=== PATIENT | female | born 1955 | race African-American/Black ===

== ENCOUNTER 2019-04-10 09:57 | Emergency (ER) | payer MEDICARE, OTHER ==
[~2019-04-10] VITALS: Ht 157.5 cm; Wt 77.0 kg
[~2019-04-10 09:57] MED LIST: A20IH1 IH; ASCO500C6 PO; DOCU250C91 PO; FLUT1DIS3 IH; GABA-531 PO; METAMUCIL1 PKT PO; MULT1CAP32 PO; OMEP20TA2 PO; ONDA-104 PO; OXYC5CAP19 PO; PSYL1PAC11 PO; RIFA300 PO; SENN-180 PO; SULF-168 PO; SULF1TAB42 PO; TRAM50TA4 PO
[2019-04-10] MEDS ORDERED: PHEN8TAB15 PO (10:21)
[2019-04-10] MEDS ORDERED: MECL12.585 PO (10:21)
[2019-04-10] MEDS ORDERED: BUME1TAB34 PO (10:21)
[2019-04-10] MEDS ORDERED: POTA25TA7 PO (10:21)
[2019-04-10 11:12] VITALS: BP 132/69
[2019-04-10] MEDS ORDERED: PHEN37.599 PO (11:30)
== END 2019-04-10 11:55 | disposition home or self-care (01) ==
LOC: EMS 09:59
DX: T50.5X1A Poisoning by appetite depressants, accidental (unintentional), initial encounter (principal); K21.9 Gastro-esophageal reflux disease without esophagitis; E03.9 Hypothyroidism, unspecified; G89.29 Other chronic pain; Z90.710 Acquired absence of both cervix and uterus; Z88.6 Allergy status to analgesic agent; Z88.5 Allergy status to narcotic agent; Z88.0 Allergy status to penicillin; Y92.89 Other specified places as the place of occurrence of the external cause

== ENCOUNTER 2019-09-23 05:53 | Emergency (ER) | payer MEDICARE, OTHER ==
[~2019-09-23] VITALS: Ht 167.6 cm; Wt 80.9 kg
[~2019-09-23 05:53] MED LIST changes: -A20IH1 IH; +BUME1TAB34 PO; -DOCU250C91 PO; +MECL-183 PO; +PHEN37.599 PO; +POTA25TA7 PO
[2019-09-23] MEDS ORDERED: NALO25TA PO (06:20)
[2019-09-23] MEDS ORDERED: MORPHINE SULFATE 4 MG/ML SYRINGE IM ONE (06:30)
[2019-09-23] MEDS ORDERED: ONDANSETRON HCL 4 MG/2 ML VIAL IM ONE (06:30)
[2019-09-23] MEDS ORDERED: CYCLOBENZAPRINE HCL 10 MG TABLET PO ONE (06:30)
[2019-09-23 07:28] VITALS: BP 169/89
[2019-09-24] MEDS ORDERED: FOLI0.4T14 PO (10:13)
[2019-09-24] MEDS ORDERED: FERR-89 PO (10:13)
[2019-09-24] MEDS ORDERED: MAGN250T29 PO (10:13)
[2019-09-24] MEDS ORDERED: SERT50TA12 PO (10:13)
[2019-09-24] MEDS ORDERED: OXYC10TA59 PO (10:13)
== END 2019-09-23 08:00 | disposition home or self-care (01) ==
LOC: EMS 05:53
DX: G89.29 Other chronic pain (principal); M25.511 Pain in right shoulder; E03.9 Hypothyroidism, unspecified; J44.9 Chronic obstructive pulmonary disease, unspecified; Z88.0 Allergy status to penicillin; Z88.5 Allergy status to narcotic agent; Z88.6 Allergy status to analgesic agent; Z79.899 Other long term (current) drug therapy
CPT/HCPCS: 96372; 99284; J2270; J2405

== ENCOUNTER 2019-09-24 09:05 | Emergency (ER) | payer MEDICARE, OTHER ==
[~2019-09-24] VITALS: Ht 167.6 cm; Wt 81.8 kg
[~2019-09-24 09:05] MED LIST changes: -MECL-183 PO; -METAMUCIL1 PKT PO; +NALO25TA PO; -PHEN37.599 PO; -PSYL1PAC11 PO; -RIFA300 PO; -SENN-180 PO; -SULF-168 PO; -SULF1TAB42 PO; -TRAM50TA4 PO
[2019-09-24] MEDS ORDERED: OxyCODONE HCL 5 MG IR TABLET PO ONE (09:30)
[2019-09-24] MEDS ORDERED: KETOROLAC TROMETHAMINE 30 MG/ML VIAL IM ONE (09:30)
[2019-09-24] MEDS ORDERED: MAGN250T29 PO (10:13)
[2019-09-24] MEDS ORDERED: OXYC10TA59 PO (10:13)
[2019-09-24] MEDS ORDERED: SERT50TA12 PO (10:13)
[2019-09-24] MEDS ORDERED: FOLI0.4T14 PO (10:13)
[2019-09-24] MEDS ORDERED: FERR-89 PO (10:13)
[2019-09-24 10:47] VITALS: BP 141/69
== END 2019-09-24 11:56 | disposition home or self-care (01) ==
LOC: EMS 09:06
DX: M54.12 Radiculopathy, cervical region (principal); M25.511 Pain in right shoulder; I10 Essential (primary) hypertension; J44.9 Chronic obstructive pulmonary disease, unspecified; Z88.0 Allergy status to penicillin; Z88.6 Allergy status to analgesic agent; Z88.5 Allergy status to narcotic agent; Z79.899 Other long term (current) drug therapy
CPT/HCPCS: 96372; 99283; J1885

== ENCOUNTER 2019-09-26 22:12 | Emergency (ER) | payer MEDICARE, OTHER ==
[~2019-09-26] VITALS: Ht 167.6 cm; Wt 72.7 kg
[~2019-09-26 22:12] MED LIST changes: +FERR-89 PO; -FLUT1DIS3 IH; +FOLI0.4T14 PO; -GABA-531 PO; +MAGN250T29 PO; +OXYC10TA59 PO; -OXYC5CAP19 PO; +SERT50TA12 PO
[2019-09-26] MEDS ORDERED: SODIUM CHLORIDE 0.9% 100 ML ONE (22:30)
[2019-09-26] MEDS ORDERED: IOVERSOL 320 MG/ML 100 ML VIAL ONE (22:30)
[2019-09-26 23:09] LABS: BASOPHILS % (AUTO) 0.8 % (0.0-2.0); EOSINOPHILS % (AUTO) 2.3 % (1.0-6.0); HEMATOCRIT 32.8 % (36-46); HEMOGLOBIN 10.5 g/dL (12.0-16.0); LYMPHOCYTES # (AUTO) 1.6 K/uL (1.0-4.8); LYMPHOCYTES % (AUTO) 17.2 % (22.0-44.0); MEAN CORPUSCULAR HEMOGLOBIN 27.9 pg (26.0-34.0); MEAN CORPUSCULAR VOLUME 87 fL (80-100); MONOCYTES # (AUTO) 1.1 K/uL (0.1-1.0); MONOCYTES % (AUTO) 11.9 % (2.0-9.0); NEUTROPHILS # (AUTO) 6.3 K/uL (1.8-7.7); NEUTROPHILS % (AUTO) 67.8 % (40.0-70.0); PLATELET COUNT (AUTO) 255 K/uL (150-450); RED BLOOD CELL COUNT(AUTO) 3.76 MIL/uL (4.00-5.20)
[2019-09-26 23:27] LABS: ANION GAP 11 mmol/L (8-16); CALCIUM, TOTAL 8.8 mg/dL (8.8-10.5); CARBON DIOXIDE 24 mmol/L (22-29); CHLORIDE 108 mmol/L (98-107); CREATININE 1.08 mg/dL (0.60-1.30); GLOMERULAR FILTR. RATE CALC > 60 mL/min (>60); GLUCOSE,RANDOM 97 mg/dL (70-110); POTASSIUM 3.8 mmol/L (3.5-5.1); SODIUM SERUM 143 mmol/L (136-145); UREA NITROGEN, BLOOD 16 mg/dL (7-18)
[2019-09-26 23:33] LABS: ALANINE AMINOTRANSFERASE 22 U/L (12-78); ALBUMIN 3.7 g/dL (3.4-5.0); ALKALINE PHOSPHATASE 90 U/L (46-116); ASPARTATE AMINOTRANSFERASE 15 U/L (15-37); BILIRUBIN,TOTAL 0.4 mg/dL (0.1-1.0); TOTAL PROTEIN, SERUM 7.5 g/dL (6.4-8.2)
[2019-09-27] MEDS ORDERED: OxyCODONE HCL 5 MG IR TABLET PO ONE (02:00)
[2019-09-27] MEDS ORDERED: DOXYCYCLINE HYCLATE 100 MG CAPSULE PO ONE (02:00)
[2019-09-27 02:25] VITALS: BP 123/79
[2019-09-27] MEDS ORDERED: ONDANSETRON HCL 4 MG TABLET PO ONE (03:15)
== END 2019-09-27 03:56 | disposition home or self-care (01) ==
LOC: EMS 22:17
DX: M25.511 Pain in right shoulder (principal); L03.113 Cellulitis of right upper limb; J44.9 Chronic obstructive pulmonary disease, unspecified; G89.29 Other chronic pain; Z90.710 Acquired absence of both cervix and uterus; Z88.0 Allergy status to penicillin; Z88.6 Allergy status to analgesic agent; Z88.5 Allergy status to narcotic agent
CPT/HCPCS: 36415; 70491; 80053; 85025; 99285; J7050; Q0162; Q9967

== ENCOUNTER 2019-10-11 10:43 | Inpatient (IN) | payer MEDICARE, OTHER ==
[~2019-10-11] VITALS: Ht 162.6 cm; Wt 84.3 kg
[2019-10-11] MEDS ORDERED: SODIUM CHLORIDE 0.9% 1,000 ML IV ONE (11:00)
[2019-10-11] MEDS ORDERED: MORPHINE SULFATE 2 MG/ML SYRINGE IVP ONE ×2 (11:00→19:30)
[2019-10-11 11:26] LABS: BASOPHILS % (AUTO) 1.2 % (0.0-2.0); EOSINOPHILS % (AUTO) 2.6 % (1.0-6.0); HEMATOCRIT 31.9 % (36-46); HEMOGLOBIN 10.6 g/dL (12.0-16.0); LYMPHOCYTES # (AUTO) 1.1 K/uL (1.0-4.8); LYMPHOCYTES % (AUTO) 19.2 % (22.0-44.0); MEAN CORPUSCULAR HEMOGLOBIN 29.1 pg (26.0-34.0); MEAN CORPUSCULAR HGB CONC 33.2 G/dL (31.0-37.0); MEAN CORPUSCULAR VOLUME 88 fL (80-100); MONOCYTES # (AUTO) 0.4 K/uL (0.1-1.0); MONOCYTES % (AUTO) 7.7 % (2.0-9.0); NEUTROPHILS # (AUTO) 3.8 K/uL (1.8-7.7); NEUTROPHILS % (AUTO) 69.3 % (40.0-70.0); PLATELET COUNT (AUTO) 232 K/uL (150-450); RED BLOOD CELL COUNT(AUTO) 3.63 MIL/uL (4.00-5.20); RED CELL DISTRIBUTION WIDTH 16.8 % (11.5-14.5)
[2019-10-11 11:49] LABS: LACTIC ACID 0.8 mmol/L (0.4-2.0)
[2019-10-11 11:53] LABS: CALCIUM, TOTAL 9.1 mg/dL (8.8-10.5); CREATININE 1.17 mg/dL (0.60-1.30); POTASSIUM 4.5 mmol/L (3.5-5.1)
[2019-10-11 11:58] LABS: ALBUMIN 3.6 g/dL (3.4-5.0); BILIRUBIN,TOTAL 0.3 mg/dL (0.1-1.0); C-REACTIVE PROTEIN QUANT 1.28 mg/dL (0.00-0.30); TOTAL PROTEIN, SERUM 7.9 g/dL (6.4-8.2)
[2019-10-11] MEDS ORDERED: GADOBUTROL 1 MMOL/ML 10 ML VIAL IVP ONE (12:05)
[2019-10-11 12:27] LABS: ERYTHROCYTE SEDIMENTATION RATE 36 MM/HR (0-20)
[2019-10-11] MEDS ORDERED: OXYC10TA92 PO (12:57)
[2019-10-11] MEDS ORDERED: TIZA4TAB5 PO (12:57)
[2019-10-11] MEDS ORDERED: [UNRECOGNIZED DRUG - CODE] PO (12:57)
[2019-10-11] MEDS ORDERED: DOXE10CA2 PO (12:57)
[2019-10-11] MEDS ORDERED: KDUR10 PO (12:59)
[2019-10-11] MEDS ORDERED: CELE100C97 PO (12:59)
[2019-10-11] MEDS ORDERED: ONDANSETRON HCL 4 MG/2 ML VIAL IVP PRN (13:00)
[2019-10-11] MEDS ORDERED: VANCOMYCIN HCL 1 GM/D5% WATER 200 ML IV ONE (13:00)
[2019-10-11] MEDS: IBUPROFEN 600 MG TABLET PO PRN ×2 (13:59→20:09)
[2019-10-11] MEDS ORDERED: SODIUM CHLORIDE 0.9% 500 ML IV ONE (14:33)
[2019-10-11 15:02] VITALS: BP 138/77
[2019-10-11] MEDS ORDERED: LORazepam 2 MG/ML VIAL IVP ONE (16:45)
[2019-10-11] MEDS ORDERED: INFLUENZA VIRUS VACCINE QVS 2019-20 (3YR+)/PF 60 MCG/0.5 ML SYRINGE IM ONE (18:00)
[2019-10-11] MEDS ORDERED: PNEUMOCOCCAL VACCINE POLYVALENT 0.5 ML VIAL [PPSV23] IM ONE (18:00)
[2019-10-11] MEDS ORDERED: BISACODYL 10 MG RECTAL RECTAL SUPPOSITORY PR PRN (21:00)
[2019-10-11] MEDS ORDERED: ZOLPIDEM TARTRATE 5 MG TABLET PO PRN (21:00)
[2019-10-11] MEDS ORDERED: CELECOXIB 100 MG CAPSULE PO PRN (21:00)
[2019-10-11] MEDS ORDERED: ALBUTEROL SULFATE 2.5 MG/0.5 ML NEB SOLUTION NEB PRN (21:00)
[2019-10-11] MEDS ORDERED: IPRATROPIUM BROMIDE 0.5 MG/2.5 ML NEB SOLUTION NEB PRN (21:00)
[2019-10-11] MEDS ORDERED: MAGNESIUM HYDROXIDE SUSPENSION 30 ML UDCUP PO PRN (21:00)
[2019-10-11] MEDS ORDERED: TiZANidine HCL 4 MG TABLET PO PRN (21:00)
[2019-10-11 22:00] VITALS: BP 143/80
[2019-10-11] MEDS: SERTRALINE HCL 50 MG TABLET PO SCH (22:29)
[2019-10-11] MEDS: DOCUSATE SODIUM 100 MG CAPSULE PO SCH (22:30)
[2019-10-11] MEDS: HEPARIN SODIUM,PORCINE 5,000 UNITS/ML VIAL SQ SCH (23:21)
[2019-10-12 04:30] VITALS: BP 152/73
[2019-10-12] MEDS: MORPHINE SULFATE 2 MG/ML SYRINGE IVP PRN ×5 (05:25→23:20)
[2019-10-12] MEDS: ONDANSETRON HCL 4 MG/2 ML VIAL IVP PRN (05:55)
[2019-10-12 08:13] VITALS: BP 137/72
[2019-10-12] MEDS: HEPARIN SODIUM,PORCINE 5,000 UNITS/ML VIAL SQ SCH ×3 (08:15→23:18)
[2019-10-12] MEDS ORDERED: GADOBUTROL 1 MMOL/ML 10 ML VIAL IVP ONE (08:20)
[2019-10-12] MEDS ORDERED: LORazepam 2 MG/ML VIAL IVP ONE (09:30)
[2019-10-12] MEDS: DOCUSATE SODIUM 100 MG CAPSULE PO SCH ×2 (10:02→20:03)
[2019-10-12] MEDS: BUMETANIDE 1 MG TABLET PO SCH (10:02)
[2019-10-12 14:20] VITALS: BP 149/92
[2019-10-12 15:27] VITALS: BP 147/69
[2019-10-12 18:18] LABS: BASOPHILS % (AUTO) 1.9 % (0.0-2.0); EOSINOPHILS % (AUTO) 1.8 % (1.0-6.0); HEMATOCRIT 31.9 % (36-46); HEMOGLOBIN 10.3 g/dL (12.0-16.0); LYMPHOCYTES # (AUTO) 1.3 K/uL (1.0-4.8); LYMPHOCYTES % (AUTO) 20.6 % (22.0-44.0); MEAN CORPUSCULAR HEMOGLOBIN 28.1 pg (26.0-34.0); MEAN CORPUSCULAR HGB CONC 32.3 G/dL (31.0-37.0); MEAN CORPUSCULAR VOLUME 87 fL (80-100); MONOCYTES # (AUTO) 0.5 K/uL (0.1-1.0); MONOCYTES % (AUTO) 7.2 % (2.0-9.0); NEUTROPHILS # (AUTO) 4.3 K/uL (1.8-7.7); NEUTROPHILS % (AUTO) 68.5 % (40.0-70.0); PLATELET COUNT (AUTO) 230 K/uL (150-450); RED BLOOD CELL COUNT(AUTO) 3.67 MIL/uL (4.00-5.20); RED CELL DISTRIBUTION WIDTH 16.3 % (11.5-14.5)
[2019-10-12 18:27] LABS: CALCIUM, TOTAL 8.8 mg/dL (8.8-10.5); CREATININE 1.15 mg/dL (0.60-1.30)
[2019-10-12 18:33] LABS: ALBUMIN 3.1 g/dL (3.4-5.0); BILIRUBIN,TOTAL 0.4 mg/dL (0.1-1.0); TOTAL PROTEIN, SERUM 7.3 g/dL (6.4-8.2)
[2019-10-12 19:30] VITALS: BP 146/71
[2019-10-12] MEDS: SERTRALINE HCL 50 MG TABLET PO SCH (20:03)
[2019-10-12 23:33] VITALS: BP 148/66
[2019-10-13 05:05] VITALS: BP 140/68
[2019-10-13] MEDS: MORPHINE SULFATE 2 MG/ML SYRINGE IVP PRN ×5 (06:04→16:05)
[2019-10-13 07:18] LABS: EOSINOPHILS % (AUTO) 2.1 % (1.0-6.0); HEMATOCRIT 31.3 % (36-46); HEMOGLOBIN 10.2 g/dL (12.0-16.0); LYMPHOCYTES % (AUTO) 20.7 % (22.0-44.0); MEAN CORPUSCULAR HEMOGLOBIN 28.4 pg (26.0-34.0); MEAN CORPUSCULAR HGB CONC 32.7 G/dL (31.0-37.0); MEAN CORPUSCULAR VOLUME 87 fL (80-100); MONOCYTES # (AUTO) 0.4 K/uL (0.1-1.0); MONOCYTES % (AUTO) 8.1 % (2.0-9.0); NEUTROPHILS # (AUTO) 3.4 K/uL (1.8-7.7); NEUTROPHILS % (AUTO) 68.1 % (40.0-70.0); PLATELET COUNT (AUTO) 221 K/uL (150-450); RED CELL DISTRIBUTION WIDTH 16.3 % (11.5-14.5)
[2019-10-13 07:34] LABS: ALANINE AMINOTRANSFERASE 13 U/L (12-78); ALBUMIN 2.9 g/dL (3.4-5.0); ALKALINE PHOSPHATASE 79 U/L (46-116); ANION GAP 7 mmol/L (8-16); ASPARTATE AMINOTRANSFERASE 11 U/L (15-37); BILIRUBIN,TOTAL 0.4 mg/dL (0.1-1.0); C-REACTIVE PROTEIN QUANT 0.77 mg/dL (0.00-0.30); CALCIUM, TOTAL 8.9 mg/dL (8.8-10.5); CARBON DIOXIDE 27 mmol/L (22-29); CHLORIDE 106 mmol/L (98-107); CREATININE 1.02 mg/dL (0.60-1.30); GLOMERULAR FILTR. RATE CALC > 60 mL/min (>60); GLUCOSE,RANDOM 87 mg/dL (70-110); POTASSIUM 3.9 mmol/L (3.5-5.1); SODIUM SERUM 140 mmol/L (136-145); TOTAL PROTEIN, SERUM 6.8 g/dL (6.4-8.2); UREA NITROGEN, BLOOD 16 mg/dL (7-18)
[2019-10-13 08:05] VITALS: BP 139/70
[2019-10-13] MEDS: CeFAZolin 1 GM/DEXTROSE 50 ML IV SCH ×2 (08:51→16:47)
[2019-10-13] MEDS: DOCUSATE SODIUM 100 MG CAPSULE PO SCH (08:51)
[2019-10-13] MEDS: BUMETANIDE 1 MG TABLET PO SCH (08:51)
[2019-10-13] MEDS: HEPARIN SODIUM,PORCINE 5,000 UNITS/ML VIAL SQ SCH ×2 (08:52→16:48)
[2019-10-13 09:21] LABS: ERYTHROCYTE SEDIMENTATION RATE 29 MM/HR (0-20)
[2019-10-13 11:41] VITALS: BP 120/61
[2019-10-13] MEDS ORDERED: DOXY150T5 PO (15:34)
[2019-10-13 16:05] VITALS: BP 122/91
[2019-10-13] MEDS: ONDANSETRON HCL 4 MG/2 ML VIAL IVP PRN (17:40)
== END 2019-10-13 18:05 | disposition home or self-care (01) | DRG 550 ==
LOC: EDUNIT# 10:43 → EMS 10:47 → 6N 14:02
PROVIDERS: ADMIT Hospitalist; ATTEND Hospitalist
PROC: 3E02340 Introduction of Influenza Vaccine into Muscle, Percutaneous Approach (ICD-10-PCS; principal; 2019-10-13)
PROC: 3E0234Z Introduction of Serum, Toxoid and Vaccine into Muscle, Percutaneous Approach (ICD-10-PCS; 2019-10-13)
DX: M00.9 Pyogenic arthritis, unspecified (principal); G89.29 Other chronic pain; Z23 Encounter for immunization; Z88.0 Allergy status to penicillin; Z88.8 Allergy status to other drugs, medicaments and biological substances; J44.9 Chronic obstructive pulmonary disease, unspecified; E03.9 Hypothyroidism, unspecified; M54.9 Dorsalgia, unspecified; Z90.710 Acquired absence of both cervix and uterus; H54.7 Unspecified visual loss
CPT/HCPCS: 73223; 83605; 85651; 86140; 87040; 90686; 90732; A9585; J0690; J1644; J2060; J2270; J2405; J3370; J7030; J7040

== ENCOUNTER 2019-10-21 19:16 | Inpatient (IN) | payer MEDICARE, OTHER ==
[~2019-10-21] VITALS: Ht 165.1 cm; Wt 80.0 kg
[~2019-10-21 19:16] MED LIST changes: +CELE100C97 PO; +DOXE10CA2 PO; +DOXY150T5 PO; -OXYC10TA59 PO; +OXYC10TA92 PO; -POTA25TA7 PO; +TIZA4TAB5 PO; +[UNRECOGNIZED DRUG - CODE] PO; +[UNRECOGNIZED DRUG - CODE] PO
[2019-10-21] MEDS ORDERED: HYDROmorphone 2 MG/ML SYRINGE IVP ONE (21:45)
[2019-10-21] MEDS ORDERED: ONDANSETRON HCL 4 MG/2 ML VIAL IVP ONE (21:45)
[2019-10-21] MEDS: HYDROmorphone 2 MG/ML SYRINGE IM ONE ×3 (22:15→22:39)
[2019-10-21 22:54] LABS: ANION GAP 10 mmol/L (8-16); CALCIUM, TOTAL 9.2 mg/dL (8.8-10.5); CARBON DIOXIDE 27 mmol/L (22-29); CHLORIDE 105 mmol/L (98-107); CREATININE 1.09 mg/dL (0.60-1.30); GLOMERULAR FILTR. RATE CALC > 60 mL/min (>60); GLUCOSE,RANDOM 108 mg/dL (70-110); POTASSIUM 3.4 mmol/L (3.5-5.1); SODIUM SERUM 142 mmol/L (136-145); UREA NITROGEN, BLOOD 20 mg/dL (7-18)
[2019-10-21 23:00] LABS: ALANINE AMINOTRANSFERASE 14 U/L (12-78); ALBUMIN 3.8 g/dL (3.4-5.0); ALKALINE PHOSPHATASE 93 U/L (46-116); ASPARTATE AMINOTRANSFERASE 9 U/L (15-37); BILIRUBIN,TOTAL 0.3 mg/dL (0.1-1.0); C-REACTIVE PROTEIN QUANT 0.67 mg/dL (0.00-0.30); TOTAL PROTEIN, SERUM 8.1 g/dL (6.4-8.2)
[2019-10-21 23:05] LABS: BASOPHILS % (AUTO) 0.9 % (0.0-2.0); EOSINOPHILS % (AUTO) 0.6 % (1.0-6.0); HEMATOCRIT 35.6 % (36-46); HEMOGLOBIN 11.3 g/dL (12.0-16.0); LYMPHOCYTES # (AUTO) 1.1 K/uL (1.0-4.8); LYMPHOCYTES % (AUTO) 14.6 % (22.0-44.0); MEAN CORPUSCULAR HEMOGLOBIN 28.2 pg (26.0-34.0); MEAN CORPUSCULAR HGB CONC 31.6 G/dL (31.0-37.0); MEAN CORPUSCULAR VOLUME 89 fL (80-100); MONOCYTES # (AUTO) 0.5 K/uL (0.1-1.0); MONOCYTES % (AUTO) 6.8 % (2.0-9.0); NEUTROPHILS # (AUTO) 5.8 K/uL (1.8-7.7); NEUTROPHILS % (AUTO) 77.1 % (40.0-70.0); PLATELET COUNT (AUTO) 268 K/uL (150-450); RED CELL DISTRIBUTION WIDTH 16.2 % (11.5-14.5)
[2019-10-21] MEDS ORDERED: ONDANSETRON HCL 4 MG/2 ML VIAL IVP PRN (23:30)
[2019-10-22 00:09] LABS: ERYTHROCYTE SEDIMENTATION RATE 22 MM/HR (0-20)
[2019-10-22 02:03] VITALS: BP 119/55
[2019-10-22 08:05] VITALS: BP 136/61
[2019-10-22] MEDS: MORPHINE SULFATE 2 MG/ML SYRINGE IVP PRN ×3 (09:03→19:43)
[2019-10-22 12:00] VITALS: BP 141/62
[2019-10-22] MEDS ORDERED: ONDANSETRON HCL 4 MG/2 ML VIAL IVP PRN (12:15)
[2019-10-22] MEDS ORDERED: BISACODYL 10 MG RECTAL RECTAL SUPPOSITORY PR PRN (13:15)
[2019-10-22] MEDS ORDERED: ALBUTEROL SULFATE 2.5 MG/0.5 ML NEB SOLUTION NEB PRN (13:15)
[2019-10-22] MEDS ORDERED: [UNRECOGNIZED DRUG - OTHER] PO PRN (13:15)
[2019-10-22] MEDS ORDERED: MAGNESIUM HYDROXIDE SUSPENSION 30 ML UDCUP PO PRN (13:15)
[2019-10-22] MEDS ORDERED: CELECOXIB 100 MG CAPSULE PO PRN (13:15)
[2019-10-22] MEDS ORDERED: IPRATROPIUM BROMIDE 0.5 MG/2.5 ML NEB SOLUTION NEB PRN (13:15)
[2019-10-22] MEDS: HEPARIN SODIUM,PORCINE 5,000 UNITS/ML VIAL SQ SCH (15:05)
[2019-10-22] MEDS: ASCORBIC ACID 500 MG TABLET PO SCH (15:07)
[2019-10-22] MEDS: MULTIVITAMINS, THERAPEUTIC TABLET PO SCH (15:07)
[2019-10-22] MEDS: ONDANSETRON HCL 4 MG/2 ML VIAL IVP PRN (15:08)
[2019-10-22 15:20] VITALS: BP 139/65
[2019-10-22 15:32] LABS: BASOPHILS % (AUTO) 1.1 % (0.0-2.0); HEMATOCRIT 33.2 % (36-46); HEMOGLOBIN 10.7 g/dL (12.0-16.0); LYMPHOCYTES # (AUTO) 1.4 K/uL (1.0-4.8); LYMPHOCYTES % (AUTO) 27.3 % (22.0-44.0); MEAN CORPUSCULAR HEMOGLOBIN 28.5 pg (26.0-34.0); MEAN CORPUSCULAR HGB CONC 32.3 G/dL (31.0-37.0); MEAN CORPUSCULAR VOLUME 88 fL (80-100); MONOCYTES # (AUTO) 0.5 K/uL (0.1-1.0); MONOCYTES % (AUTO) 9.6 % (2.0-9.0); PLATELET COUNT (AUTO) 242 K/uL (150-450); RED BLOOD CELL COUNT(AUTO) 3.76 MIL/uL (4.00-5.20); RED CELL DISTRIBUTION WIDTH 15.9 % (11.5-14.5)
[2019-10-22 15:45] LABS: ANION GAP 7 mmol/L (8-16); CALCIUM, TOTAL 9.1 mg/dL (8.8-10.5); CARBON DIOXIDE 29 mmol/L (22-29); CHLORIDE 107 mmol/L (98-107); GLOMERULAR FILTR. RATE CALC > 60 mL/min (>60); GLUCOSE,RANDOM 94 mg/dL (70-110); POTASSIUM 3.8 mmol/L (3.5-5.1); SODIUM SERUM 143 mmol/L (136-145); UREA NITROGEN, BLOOD 15 mg/dL (7-18)
[2019-10-22] MEDS: OMEPRAZOLE 20 MG CAPSULE PO SCH (16:09)
[2019-10-22] MEDS: BUMETANIDE 1 MG TABLET PO SCH (16:10)
[2019-10-22 19:40] VITALS: BP 119/59
[2019-10-22] MEDS: TiZANidine HCL 4 MG TABLET PO PRN (20:28)
[2019-10-22] MEDS: DOCUSATE SODIUM 100 MG CAPSULE PO SCH (20:28)
[2019-10-22] MEDS: ZOLPIDEM TARTRATE 5 MG TABLET PO PRN (22:51)
[2019-10-23] VITALS: BP 124/74
[2019-10-23] MEDS: HEPARIN SODIUM,PORCINE 5,000 UNITS/ML VIAL SQ SCH ×3 (00:10→17:18)
[2019-10-23] MEDS: MORPHINE SULFATE 2 MG/ML SYRINGE IVP PRN ×5 (00:11→20:05)
[2019-10-23 04:30] VITALS: BP 143/70
[2019-10-23] MEDS: ASCORBIC ACID 500 MG TABLET PO SCH (08:31)
[2019-10-23] MEDS: OMEPRAZOLE 20 MG CAPSULE PO SCH (08:31)
[2019-10-23] MEDS: DOCUSATE SODIUM 100 MG CAPSULE PO SCH ×2 (08:32→20:15)
[2019-10-23] MEDS: MULTIVITAMINS, THERAPEUTIC TABLET PO SCH (08:32)
[2019-10-23] MEDS: BUMETANIDE 1 MG TABLET PO SCH (08:32)
[2019-10-23 08:42] VITALS: BP 125/53
[2019-10-23] MEDS: ONDANSETRON HCL 4 MG/2 ML VIAL IVP PRN (10:25)
[2019-10-23] MEDS: TiZANidine HCL 4 MG TABLET PO PRN ×2 (11:49→21:08)
[2019-10-23 12:53] VITALS: BP 110/63
[2019-10-23 15:03] VITALS: BP 115/72
[2019-10-23 20:01] VITALS: BP 119/65
[2019-10-24] VITALS (7 sets, daily range): BP systolic 103–140; BP diastolic 64–87
[2019-10-24] MEDS: HEPARIN SODIUM,PORCINE 5,000 UNITS/ML VIAL SQ SCH ×4 (00:21→22:41)
[2019-10-24] MEDS: MORPHINE SULFATE 2 MG/ML SYRINGE IVP PRN ×4 (04:28→21:34)
[2019-10-24] MEDS: ASCORBIC ACID 500 MG TABLET PO SCH (08:28)
[2019-10-24] MEDS: DOCUSATE SODIUM 100 MG CAPSULE PO SCH ×2 (08:28→21:34)
[2019-10-24] MEDS: BUMETANIDE 1 MG TABLET PO SCH (08:28)
[2019-10-24] MEDS: MULTIVITAMINS, THERAPEUTIC TABLET PO SCH (08:28)
[2019-10-24] MEDS: OMEPRAZOLE 20 MG CAPSULE PO SCH (08:28)
[2019-10-24] MEDS: TiZANidine HCL 4 MG TABLET PO PRN ×3 (08:29→22:39)
[2019-10-24] MEDS: ONDANSETRON HCL 4 MG/2 ML VIAL IVP PRN ×2 (08:30→14:38)
[2019-10-24] MEDS: OxyCODONE HCL 10 MG IR TABLET PO PRN (11:06)
[2019-10-24] MEDS: ZOLPIDEM TARTRATE 5 MG TABLET PO PRN (22:39)
[2019-10-25 04:00] VITALS: BP 122/72
[2019-10-25] MEDS: MORPHINE SULFATE 2 MG/ML SYRINGE IVP PRN ×3 (05:27→14:41)
[2019-10-25] MEDS: DOCUSATE SODIUM 100 MG CAPSULE PO SCH (08:32)
[2019-10-25] MEDS: MULTIVITAMINS, THERAPEUTIC TABLET PO SCH (08:32)
[2019-10-25] MEDS: HEPARIN SODIUM,PORCINE 5,000 UNITS/ML VIAL SQ SCH ×2 (08:33→16:00)
[2019-10-25] MEDS: ASCORBIC ACID 500 MG TABLET PO SCH (08:33)
[2019-10-25] MEDS: BUMETANIDE 1 MG TABLET PO SCH (08:33)
[2019-10-25] MEDS: OMEPRAZOLE 20 MG CAPSULE PO SCH (08:33)
[2019-10-25 08:36] VITALS: BP 107/68
[2019-10-25] MEDS: TiZANidine HCL 4 MG TABLET PO PRN ×2 (10:40→18:08)
[2019-10-25 13:16] VITALS: BP 114/68
[2019-10-25 16:53] VITALS: BP 120/76
[2019-10-25] MEDS: OxyCODONE HCL 10 MG IR TABLET PO PRN (18:08)
== END 2019-10-25 20:00 | DRG 554 ==
LOC: EMS 19:16 → 6N 10-22 01:34
PROVIDERS: ADMIT Hospitalist; ATTEND Hospitalist
DX: M19.011 Primary osteoarthritis, right shoulder (principal); E87.6 Hypokalemia; D64.9 Anemia, unspecified; E03.9 Hypothyroidism, unspecified; Z88.0 Allergy status to penicillin; Z88.8 Allergy status to other drugs, medicaments and biological substances; Z88.5 Allergy status to narcotic agent; J44.9 Chronic obstructive pulmonary disease, unspecified; G89.29 Other chronic pain; Z90.710 Acquired absence of both cervix and uterus; M54.9 Dorsalgia, unspecified
CPT/HCPCS: 83605; 84145; 85651; 86140; 87040; 87081; 97163; 97167; 97530; 97535; J1170; J1644; J2270; J2405

== ENCOUNTER 2020-02-01 23:09 | Emergency (ER) | payer MEDICARE, MEDICAID ==
[~2020-02-01] VITALS: Ht 167.6 cm; Wt 72.7 kg
[~2020-02-01 23:09] MED LIST changes: -FOLI0.4T14 PO; +FOLI0.4T92 PO; +POTA-92 PO; -[UNRECOGNIZED DRUG - CODE] PO
[2020-02-02] MEDS ORDERED: MAGNESIUM SULFATE 2 GM/WATER 50 ML IV ONE
[2020-02-02] MEDS ORDERED: SODIUM CHLORIDE 0.9% 1,000 ML IV ONE
[2020-02-02] MEDS ORDERED: KETOROLAC TROMETHAMINE 30 MG/ML VIAL IVP ONE
[2020-02-02] MEDS ORDERED: MethylPREDNISolone SOD SUCC 125 MG/2 ML VIAL IVP ONE
[2020-02-02] MEDS ORDERED: HYDROmorphone 2 MG/ML SYRINGE IVP ONE (00:15)
[2020-02-02 00:25] LABS: BASOPHILS % (AUTO) 1.1 % (0.0-2.0); EOSINOPHILS % (AUTO) 1.7 % (1.0-6.0); HEMOGLOBIN 9.3 g/dL (12.0-16.0); LYMPHOCYTES # (AUTO) 1.1 K/uL (1.0-4.8); LYMPHOCYTES % (AUTO) 20.5 % (22.0-44.0); MEAN CORPUSCULAR HEMOGLOBIN 26.2 pg (26.0-34.0); MEAN CORPUSCULAR HGB CONC 32.2 G/dL (31.0-37.0); MEAN CORPUSCULAR VOLUME 81 fL (80-100); MONOCYTES # (AUTO) 0.5 K/uL (0.1-1.0); MONOCYTES % (AUTO) 9.5 % (2.0-9.0); NEUTROPHILS # (AUTO) 3.6 K/uL (1.8-7.7); NEUTROPHILS % (AUTO) 67.2 % (40.0-70.0); PLATELET COUNT (AUTO) 238 K/uL (150-450); RED BLOOD CELL COUNT(AUTO) 3.56 MIL/uL (4.00-5.20); RED CELL DISTRIBUTION WIDTH 14.3 % (11.5-14.5)
[2020-02-02 00:30] LABS: ANION GAP 6 mmol/L (8-16); CARBON DIOXIDE 33 mmol/L (22-29); CHLORIDE 100 mmol/L (98-107); CREATININE 1.08 mg/dL (0.60-1.30); GLOMERULAR FILTR. RATE CALC > 60 mL/min (>60); GLUCOSE,RANDOM 95 mg/dL (70-110); POTASSIUM 3.1 mmol/L (3.5-5.1); SODIUM SERUM 139 mmol/L (136-145); UREA NITROGEN, BLOOD 17 mg/dL (7-18)
[2020-02-02 00:35] LABS: ALANINE AMINOTRANSFERASE 14 U/L (12-78); ALBUMIN 3.4 g/dL (3.4-5.0); ALKALINE PHOSPHATASE 100 U/L (46-116); ASPARTATE AMINOTRANSFERASE 13 U/L (15-37); BILIRUBIN,TOTAL 0.3 mg/dL (0.1-1.0)
[2020-02-02] MEDS ORDERED: POTASSIUM CHLORIDE 20 MEQ ER TABLET PO ONE (00:45)
[2020-02-02 04:09] VITALS: BP 137/73
== END 2020-02-02 04:15 | disposition home or self-care (01) ==
LOC: EMS 23:10
DX: S46.911A Strain of unspecified muscle, fascia and tendon at shoulder and upper arm level, right arm, initial encounter (principal); G44.209 Tension-type headache, unspecified, not intractable; M54.2 Cervicalgia; J44.9 Chronic obstructive pulmonary disease, unspecified; G89.29 Other chronic pain; Z90.710 Acquired absence of both cervix and uterus; Z88.6 Allergy status to analgesic agent; Z88.5 Allergy status to narcotic agent; Z88.0 Allergy status to penicillin; Z88.8 Allergy status to other drugs, medicaments and biological substances; Z91.018 Allergy to other foods; X58.XXXA Exposure to other specified factors, initial encounter; Y93.89 Activity, other specified; Y92.89 Other specified places as the place of occurrence of the external cause; Y99.8 Other external cause status
CPT/HCPCS: 36415; 70450; 72125; 80053; 85025; 96365; 96366; 96375; 99285; J1170; J1885; J2930; J3475; J7030

== ENCOUNTER 2020-03-02 17:15 | Emergency (ER) | payer MEDICARE, MEDICAID ==
[~2020-03-02] VITALS: Ht 170.2 cm; Wt 88.6 kg
[2020-03-02] MEDS ORDERED: KETOROLAC TROMETHAMINE 30 MG/ML VIAL IM ONE (20:30)
[2020-03-02] MEDS ORDERED: HYDROCODONE/ACETAMINOPHEN 5-325 MG TABLET PO ONE (20:30)
[2020-03-02 20:55] VITALS: BP 139/64
== END 2020-03-02 21:26 | disposition home or self-care (01) ==
LOC: EMS 17:16
DX: M16.11 Unilateral primary osteoarthritis, right hip (principal); J44.9 Chronic obstructive pulmonary disease, unspecified; Z79.899 Other long term (current) drug therapy
CPT/HCPCS: 96372; 99283; J1885

== ENCOUNTER 2020-03-11 19:40 | Emergency (ER) | payer MEDICARE, MEDICAID ==
[~2020-03-11] VITALS: Ht 165.1 cm; Wt 75.0 kg
[2020-03-11] MEDS ORDERED: OxyCODONE HCL 5 MG IR TABLET PO ONE (20:30)
[2020-03-11 23:18] VITALS: BP 137/71
== END 2020-03-11 23:57 | disposition home or self-care (01) ==
LOC: EMS 19:41
DX: M25.551 Pain in right hip (principal); G89.29 Other chronic pain; J44.9 Chronic obstructive pulmonary disease, unspecified; Z76.0 Encounter for issue of repeat prescription; Z90.710 Acquired absence of both cervix and uterus; Z88.6 Allergy status to analgesic agent; Z88.5 Allergy status to narcotic agent; Z91.018 Allergy to other foods; Z88.0 Allergy status to penicillin; Z88.8 Allergy status to other drugs, medicaments and biological substances

== ENCOUNTER 2020-04-21 14:41 | Emergency (ER) | payer MEDICARE, MEDICAID ==
[~2020-04-21] VITALS: Ht 167.6 cm; Wt 76.4 kg
[~2020-04-21 14:41] MED LIST changes: -NALO25TA PO; +NALO25TA4 PO
[2020-04-21] MEDS ORDERED: CYCLOBENZAPRINE HCL 10 MG TABLET PO ONE (15:30)
[2020-04-21] MEDS ORDERED: HYDROCODONE/ACETAMINOPHEN 5-325 MG TABLET PO ONE (17:45)
[2020-04-21 18:51] VITALS: BP 132/75
== END 2020-04-21 18:59 | disposition home or self-care (01) ==
LOC: EMS 14:41
DX: G89.29 Other chronic pain (principal); R51.9 Headache, unspecified; M25.511 Pain in right shoulder; E03.9 Hypothyroidism, unspecified; J44.9 Chronic obstructive pulmonary disease, unspecified; Z79.899 Other long term (current) drug therapy
CPT/HCPCS: 70450

== ENCOUNTER 2020-05-24 16:50 | Emergency (ER) | payer MEDICARE, MEDICAID ==
[~2020-05-24] VITALS: Ht 167.6 cm; Wt 68.2 kg
[~2020-05-24 16:50] MED LIST changes: +FOLI0.4T6 PO; -FOLI0.4T92 PO
[2020-05-24 17:44] VITALS: BP 126/64
[2020-05-24] MEDS ORDERED: HYDROCODONE/ACETAMINOPHEN 5-325 MG TABLET PO ONE (18:30)
== END 2020-05-24 19:24 | disposition home or self-care (01) ==
LOC: EMS 16:50
DX: S91.312A Laceration without foreign body, left foot, initial encounter (principal); J44.9 Chronic obstructive pulmonary disease, unspecified; Z90.710 Acquired absence of both cervix and uterus; Z88.5 Allergy status to narcotic agent; Z91.018 Allergy to other foods; Z88.0 Allergy status to penicillin; Z88.8 Allergy status to other drugs, medicaments and biological substances; W22.8XXA Striking against or struck by other objects, initial encounter; Y93.89 Activity, other specified; Y92.89 Other specified places as the place of occurrence of the external cause; Y99.8 Other external cause status
CPT/HCPCS: 12001

== ENCOUNTER 2020-07-06 20:06 | Emergency (ER) | payer MEDICARE, MEDICAID ==
[~2020-07-06] VITALS: Ht 170.2 cm; Wt 75.0 kg
[2020-07-06] MEDS ORDERED: HYDROCODONE/ACETAMINOPHEN 5-325 MG TABLET PO ONE (20:45)
[2020-07-06] MEDS ORDERED: HYDROmorphone 2 MG/ML SYRINGE IM ONE (20:45)
[2020-07-06] MEDS ORDERED: ONDANSETRON HCL 4 MG/2 ML VIAL IM ONE (20:45)
[2020-07-06 21:05] LABS: BASOPHILS % (AUTO) 1.1 % (0.0-2.0); EOSINOPHILS % (AUTO) 6.8 % (1.0-6.0); HEMATOCRIT 24.9 % (36-46); HEMOGLOBIN 7.7 g/dL (12.0-16.0); LYMPHOCYTES # (AUTO) 0.9 K/uL (1.0-4.8); LYMPHOCYTES % (AUTO) 27.4 % (22.0-44.0); MEAN CORPUSCULAR HEMOGLOBIN 21.4 pg (26.0-34.0); MEAN CORPUSCULAR HGB CONC 30.9 G/dL (31.0-37.0); MEAN CORPUSCULAR VOLUME 69 fL (80-100); MONOCYTES # (AUTO) 0.4 K/uL (0.1-1.0); MONOCYTES % (AUTO) 12.4 % (2.0-9.0); NEUTROPHILS # (AUTO) 1.7 K/uL (1.8-7.7); NEUTROPHILS % (AUTO) 52.3 % (40.0-70.0); PLATELET COUNT (AUTO) 240 K/uL (150-450)
[2020-07-06 21:18] LABS: CALCIUM, TOTAL 8.3 mg/dL (8.8-10.5); CREATININE 1.34 mg/dL (0.60-1.30)
[2020-07-06 21:23] LABS: ALBUMIN 3.2 g/dL (3.4-5.0); BILIRUBIN,TOTAL 0.3 mg/dL (0.1-1.0); TOTAL PROTEIN, SERUM 8.1 g/dL (6.4-8.2)
[2020-07-06 22:23] VITALS: BP 133/84
== END 2020-07-06 22:24 | disposition home or self-care (01) ==
LOC: EMS 20:06
DX: S29.012A Strain of muscle and tendon of back wall of thorax, initial encounter (principal); D50.9 Iron deficiency anemia, unspecified; M47.9 Spondylosis, unspecified; G89.29 Other chronic pain; J44.9 Chronic obstructive pulmonary disease, unspecified; Z90.710 Acquired absence of both cervix and uterus; Z88.0 Allergy status to penicillin; Z88.6 Allergy status to analgesic agent; Z91.02 Food additives allergy status; Z91.018 Allergy to other foods; X58.XXXA Exposure to other specified factors, initial encounter; Y93.89 Activity, other specified; Y92.89 Other specified places as the place of occurrence of the external cause; Y99.8 Other external cause status
CPT/HCPCS: 36415; 80053; 83540; 83550; 84484; 85025; 93005; 96372; 99284; J1170; J2405; 29240

== ENCOUNTER 2020-08-28 19:53 | Emergency (ER) | payer MEDICARE, MEDICAID ==
[~2020-08-28] VITALS: Ht 167.6 cm; Wt 75.0 kg
[~2020-08-28 19:53] MED LIST changes: +SERT-158 PO; -SERT50TA12 PO
[2020-08-28] MEDS ORDERED: ONDANSETRON HCL 4 MG/2 ML VIAL IVP ONE (21:30)
[2020-08-28] MEDS ORDERED: SODIUM CHLORIDE 0.9% 1,000 ML IV ONE (21:30)
[2020-08-28 21:33] LABS: HEMATOCRIT 26.6 % (36-46); HEMOGLOBIN 8.2 g/dL (12.0-16.0); MEAN CORPUSCULAR HEMOGLOBIN 22.1 pg (26.0-34.0); MEAN CORPUSCULAR HGB CONC 30.9 G/dL (31.0-37.0); MEAN CORPUSCULAR VOLUME 72 fL (80-100); PLATELET COUNT (AUTO) 242 K/uL (150-450); RED BLOOD CELL COUNT(AUTO) 3.72 MIL/uL (4.00-5.20); RED CELL DISTRIBUTION WIDTH 21.8 % (11.5-14.5)
[2020-08-28 21:41] LABS: CARBON DIOXIDE 31 mmol/L (22-29); CHLORIDE 101 mmol/L (98-107); POTASSIUM 3.2 mmol/L (3.5-5.1); SODIUM SERUM 141 mmol/L (136-145)
[2020-08-28 21:42] LABS: ANION GAP 9 mmol/L (8-16); CALCIUM, TOTAL 8.3 mg/dL (8.8-10.5); CREATININE 1.45 mg/dL (0.60-1.30); GLOMERULAR FILTR. RATE CALC 44 mL/min (>60); GLUCOSE,RANDOM 98 mg/dL (70-110); UREA NITROGEN, BLOOD 30 mg/dL (7-18)
[2020-08-28 21:57] LABS: ALANINE AMINOTRANSFERASE 14 U/L (12-78); ALBUMIN 3.3 g/dL (3.4-5.0); ALKALINE PHOSPHATASE 105 U/L (46-116); ASPARTATE AMINOTRANSFERASE 13 U/L (15-37); BILIRUBIN,TOTAL 0.3 mg/dL (0.1-1.0); TOTAL PROTEIN, SERUM 8.1 g/dL (6.4-8.2)
[2020-08-28 22:12] LABS: EOSINOPHILS % (MANUAL) 8 % (1-6); LYMPHOCYTES % (MANUAL) 28 % (22-44); MONOCYTES % (MANUAL) 10 % (2-9); SEGMENTED NEUTROPHILS % 54 % (40-70)
[2020-08-28] MEDS: MORPHINE SULFATE 2 MG/ML SYRINGE IVP ONE ×2 (22:51→22:59)
[2020-08-28] MEDS ORDERED: KETOROLAC TROMETHAMINE 30 MG/ML VIAL IVP ONE (23:00)
[2020-08-29] MEDS ORDERED: SODIUM CHLORIDE 0.9% 1,000 ML IV ONE (00:30)
[2020-08-29 02:02] VITALS: BP 112/62
== END 2020-08-29 02:56 | disposition designated cancer center or children's hospital (05) ==
LOC: EMS 19:53
DX: S12.110A Anterior displaced Type II dens fracture, initial encounter for closed fracture (principal); D64.9 Anemia, unspecified; R94.6 Abnormal results of thyroid function studies; J44.9 Chronic obstructive pulmonary disease, unspecified; Z90.710 Acquired absence of both cervix and uterus; Z88.6 Allergy status to analgesic agent; Z88.5 Allergy status to narcotic agent; Z91.018 Allergy to other foods; Z88.0 Allergy status to penicillin; Z88.8 Allergy status to other drugs, medicaments and biological substances; W05.0XXA Fall from non-moving wheelchair, initial encounter; Y93.89 Activity, other specified; Y92.89 Other specified places as the place of occurrence of the external cause; Y99.8 Other external cause status
CPT/HCPCS: 36415; 70450; 72125; 80053; 83880; 84443; 84484; 85025; 93005; 96361 ×2; 96374; 96375; 99291; G0480; J1885; J2270; J2405; J7030 ×2

== ENCOUNTER 2020-10-11 15:47 | Emergency (ER) | payer MEDICARE, MEDICAID ==
[~2020-10-11] VITALS: Ht 167.6 cm; Wt 77.3 kg
[2020-10-11] MEDS ORDERED: METOCLOPRAMIDE HCL 5 MG/ML 2 ML VIAL IVP ONE (18:15)
[2020-10-11] MEDS ORDERED: HYDROCODONE/ACETAMINOPHEN 5-325 MG TABLET PO ONE (18:15)
[2020-10-11] MEDS ORDERED: SODIUM CHLORIDE 0.9% 1,000 ML IV ONE (18:15)
[2020-10-11] MEDS ORDERED: DiphenhydrAMINE HCL 50 MG/ML VIAL IVP ONE (18:15)
[2020-10-11 21:07] VITALS: BP 122/58
== END 2020-10-11 22:10 | disposition home or self-care (01) ==
LOC: EMS 15:50
DX: S12.110A Anterior displaced Type II dens fracture, initial encounter for closed fracture (principal); G89.29 Other chronic pain; M25.511 Pain in right shoulder; J44.9 Chronic obstructive pulmonary disease, unspecified; Z90.710 Acquired absence of both cervix and uterus; Z88.0 Allergy status to penicillin; Z88.8 Allergy status to other drugs, medicaments and biological substances; Z88.6 Allergy status to analgesic agent; Z88.5 Allergy status to narcotic agent; Z91.018 Allergy to other foods; Z91.010 Allergy to peanuts; W19.XXXA Unspecified fall, initial encounter; Y93.89 Activity, other specified; Y92.89 Other specified places as the place of occurrence of the external cause; Y99.8 Other external cause status
CPT/HCPCS: 70450; 72125; 96361; 96374; 96375; 99285; J1200; J2765; J7030

== ENCOUNTER 2021-12-31 01:55 | Emergency (ER) | payer MEDICARE, MEDICAID ==
[~2021-12-31] VITALS: Ht 167.6 cm; Wt 79.5 kg
[~2021-12-31 01:55] MED LIST changes: -FERR-89 PO; +FERR325T27 PO; +TIZA-211 PO; -TIZA4TAB5 PO
[2021-12-31] MEDS ORDERED: SODIUM CHLORIDE 0.9% 1,000 ML IV ONE (02:45)
[2021-12-31] MEDS ORDERED: ONDA-104 PO (02:47)
[2021-12-31] MEDS ORDERED: CARI-493 PO (02:47)
[2021-12-31 03:46] LABS: COVID AG,FIA SOURCE NASAL SWAB
[2021-12-31 03:50] LABS: BASOPHILS % (AUTO) 0.4 % (0.0-2.0); EOSINOPHILS % (AUTO) 0.3 % (1.0-6.0); HEMOGLOBIN 9.5 g/dL (12.0-16.0); LYMPHOCYTES # (AUTO) 0.6 K/uL (1.0-4.8); LYMPHOCYTES % (AUTO) 7.2 % (22.0-44.0); MEAN CORPUSCULAR HGB CONC 31.5 G/dL (31.0-37.0); MEAN CORPUSCULAR VOLUME 73 fL (80-100); MONOCYTES # (AUTO) 0.5 K/uL (0.1-1.0); MONOCYTES % (AUTO) 5.8 % (2.0-9.0); NEUTROPHILS # (AUTO) 6.8 K/uL (1.8-7.7); PLATELET COUNT (AUTO) 242 K/uL (150-450); RED CELL DISTRIBUTION WIDTH 19.2 % (11.5-14.5)
[2021-12-31 04:00] LABS: CALCIUM, TOTAL 8.9 mg/dL (8.8-10.5); CREATININE 1.17 mg/dL (0.60-1.30); POTASSIUM 3.7 mmol/L (3.5-5.1)
[2021-12-31 04:01] LABS: NEUTROPHILS % (AUTO) 86.3 % (40.0-70.0)
[2021-12-31 04:07] LABS: ALBUMIN 3.7 g/dL (3.4-5.0); BILIRUBIN,TOTAL 0.3 mg/dL (0.1-1.0); TOTAL PROTEIN, SERUM 8.4 g/dL (6.4-8.2)
[2021-12-31] MEDS ORDERED: PB/HYOSCY/ATR/SCOP/LIDO/MAALOX 55 ML BOTTLE PO ONE (05:15)
[2021-12-31 06:50] VITALS: BP 138/69
== END 2021-12-31 07:41 | disposition home or self-care (01) ==
LOC: EMS 02:01
DX: A05.9 Bacterial foodborne intoxication, unspecified (principal); M19.90 Unspecified osteoarthritis, unspecified site; J44.9 Chronic obstructive pulmonary disease, unspecified; I10 Essential (primary) hypertension; E03.9 Hypothyroidism, unspecified; H54.7 Unspecified visual loss; Z87.39 Personal history of other diseases of the musculoskeletal system and connective tissue; Z86.69 Personal history of other diseases of the nervous system and sense organs; Z98.890 Other specified postprocedural states; Z88.6 Allergy status to analgesic agent; Z88.5 Allergy status to narcotic agent; Z91.018 Allergy to other foods; Z88.0 Allergy status to penicillin; Z88.8 Allergy status to other drugs, medicaments and biological substances; Z20.822 Contact with and (suspected) exposure to COVID-19
CPT/HCPCS: 99285; 96360; 87426; 80053; 85025; 36415; J7030

== ENCOUNTER 2022-03-20 16:37 | Emergency (ER) | payer MEDICARE, MEDICAID ==
[~2022-03-20] VITALS: Ht 167.6 cm; Wt 84.1 kg
[~2022-03-20 16:37] MED LIST changes: +CARI-493 PO
[2022-03-20 18:35] VITALS: BP 119/72
[2022-03-20] MEDS ORDERED: HYDROCODONE/ACETAMINOPHEN 5-325 MG TABLET PO ONE (20:30)
[2022-03-20] MEDS ORDERED: TIZA-211 PO (20:48)
[2022-03-20] MEDS ORDERED: ONDA4TAB10 PO (21:01)
[2022-03-20] MEDS ORDERED: LACT10SO10 PO (21:01)
[2022-03-20] MEDS ORDERED: DULO-114 PO (21:01)
[2022-03-20] MEDS ORDERED: FOLI-130 PO (21:01)
[2022-03-20] MEDS ORDERED: PANT40TA54 PO (21:01)
[2022-03-20] MEDS ORDERED: METH2.5T6 PO (21:01)
[2022-03-20] MEDS ORDERED: FERR220E7 PO (21:01)
[2022-03-20] MEDS ORDERED: [UNRECOGNIZED DRUG - CODE] PO (21:01)
[2022-03-20] MEDS ORDERED: DOCU-350 PO (21:01)
== END 2022-03-20 21:04 | disposition home or self-care (01) ==
LOC: EMS 16:37
DX: S60.211A Contusion of right wrist, initial encounter (principal); E03.9 Hypothyroidism, unspecified; G89.29 Other chronic pain; J44.9 Chronic obstructive pulmonary disease, unspecified; I10 Essential (primary) hypertension; M19.90 Unspecified osteoarthritis, unspecified site; W22.8XXA Striking against or struck by other objects, initial encounter; Y93.29 Activity, other involving ice and snow; Y92.89 Other specified places as the place of occurrence of the external cause; Y99.8 Other external cause status; Z90.710 Acquired absence of both cervix and uterus; Z88.0 Allergy status to penicillin
CPT/HCPCS: 29515; 99283

== ENCOUNTER 2023-07-16 00:18 | Emergency (ER) | payer MEDICARE, MEDICAID ==
[~2023-07-16] VITALS: Ht 167.6 cm; Wt 81.8 kg
[~2023-07-16 00:18] MED LIST changes: +AMLO-257 PO; -ASCO500C6 PO; -BUME1TAB34 PO; +BUSP5TAB3 PO; -CARI-493 PO; -CELE100C97 PO; -DOXE10CA2 PO; -DOXY150T5 PO; +DULO-114 PO; -FERR325T27 PO; +FOLI-130 PO; -FOLI0.4T6 PO; +HYDR2TAB37 PO; +LINA290C PO; -MAGN250T29 PO; +MECL-302 PO; -MULT1CAP32 PO; -NALO25TA4 PO; -OMEP20TA2 PO; -ONDA-104 PO; -OXYC10TA92 PO; +PANT40TA54 PO; -POTA-92 PO; -SERT-158 PO; +SERT-440 PO; -TIZA-211 PO; +TRAZ-252 PO
[2023-07-16 01:05] VITALS: TEMP 98.4
[2023-07-16 03:00] VITALS: BP 137/77; PULSE 88; RESP 16
[2023-07-16] MEDS: HYDROmorphone HCL 2 MG/ML SYRINGE IM ONE ×2 (03:01→03:28)
== END 2023-07-16 03:35 | disposition left against medical advice (07) ==
LOC: EMS 00:18
DX: G89.29 Other chronic pain (principal); M25.512 Pain in left shoulder; M79.671 Pain in right foot; M19.90 Unspecified osteoarthritis, unspecified site; J44.9 Chronic obstructive pulmonary disease, unspecified; I10 Essential (primary) hypertension; E03.9 Hypothyroidism, unspecified; Z90.710 Acquired absence of both cervix and uterus; Z98.890 Other specified postprocedural states
CPT/HCPCS: 99284; 73030; 73630; 96372; J1170